=== PATIENT | female | born 1950 ===

== ENCOUNTER 2017-02-10 16:30 | Emergency (ER) | payer MEDICAID ==
[2017-02-10 16:41] VITALS: TEMP 98.4
[2017-02-10 17:37] LABS: BASO # 0.1 K/uL (0.0-0.2); BASO % 0.8 % (0.0-2.0); EOS # 0.2 K/uL (0.0-0.7); EOS % 1.6 % (0.0-4.0); HEMATOCRIT 41.9 % (34.0-47.0); LYMPH # 2.7 K/uL (1.0-4.3); LYMPH % 21.2 % (20.0-40.0); MEAN CORPUSCULAR HEMOGLOBIN 28.4 pg (27.0-31.0); MEAN CORPUSCULAR HGB CONC 32.7 g/dL (33.0-37.0); MEAN PLATELET VOLUME 8.7 fl (7.2-11.7); MONO % 7.6 % (0.0-10.0); NEUT # 8.9 K/uL (1.8-7.0); NEUT % 68.8 % (50.0-75.0); RED CELL DISTRIBUTION WIDTH 14.4 % (11.5-14.5)
[2017-02-10 17:44] LABS: ALB/GLOB RATIO 1.2 (1.0-2.1); ALKALINE PHOSPHATASE 61 U/L (38-126); ALT/SGPT 35 U/L (9-52); AST/SGOT 24 U/L (14-36); BILIRUBIN,TOTAL 0.2 mg/dl (0.2-1.3); BLOOD UREA NITROGEN 16 mg/dl (7-17); CALCIUM 9.4 mg/dL (8.4-10.2); CARBON DIOXIDE 23 mmol/L (22-30); CHLORIDE 106 mmol/L (98-107); GFR AFRICAN-AMERICAN > 60; GLUCOSE,RANDOM 251 mg/dL (65-105); SODIUM 141 mmol/l (132-148); TOTAL PROTEIN 7.9 G/DL (6.3-8.2); URIC ACID 4.5 mg/Dl (2.2-7.5)
--- NOTE | 2017-02-10 17:53 | ED PDOC ---
Lower Extremity Pain/Injury Time Seen by Provider: 02/10/17 16:43 Chief Complaint (Nursing): Lower Extremity Problem/Injury Chief Complaint (Provider): Right toe pain History Per: Patient History/Exam Limitations: no limitations Onset/Duration Of Symptoms: Hrs Current Symptoms Are (Timing): Still Present Additional Complaint(s): Abbi Houston, a 66 year old female, presents to the ED with right toe pain. The patient states that today she had an onset of right toe pain. She reports that the pain and swelling developed abruptly. Denies trauma, numbness, tingling , rash. Past Medical History Reviewed: Historical Data, Nursing Documentation, Vital Signs Vital Signs: Last Vital Signs Temp 98.4 F 02/10/17 16:39 Pulse 91 H 02/10/17 16:39 Resp 16 02/10/17 16:39 BP 189/86 H 02/10/17 16:39 Pulse Ox 97 02/10/17 16:39 - Medical History PMH: Diabetes, HTN - Surgical History Surgical History: Cholecystectomy - Family History Family History: States: Unknown Family Hx - Home Medications Home Medications: Ambulatory Orders Medication Instructions Recorded Lisinopril [Lisinopril] 1 tab PO DAILY 07/06/14 Metformin Hydrochloride [Metformin] 1 tab PO BID 07/06/14 Ibuprofen [Motrin] 600 mg PO Q8 PRN #21 tab 11/21/16 oxyCODONE/Acetaminophen [Percocet 1 ea PO Q6 PRN #8 tab 11/21/16 5/325 mg Tab] Amoxicillin/Clavulanate [Augmentin 1 tab PO BID #20 tab 02/10/17 875 MG-125 MG] - Allergies Allergies/Adverse Reactions: Allergies Allergy/AdvReac Type Severity Reaction Status Date / Time No Known Allergies Allergy Verified 11/21/16 16:45 Review of Systems Musculoskeletal: Positive for: Other (Right toe pain; denies numbness tingling and rash.) Skin: Negative for: Rash Physical Exam - Reviewed Nursing Documentation Reviewed: Yes Vital Signs Reviewed: Yes - Physical Exam Appears: Positive for: Well, Non-toxic, No Acute Distress Head Exam: Positive for: ATRAUMATIC, NORMOCEPHALIC Skin: Positive for: Normal Color, Warm. Negative for: Rash Pulses-Dorsalis Pedis (L): 2+ Pulses-Dorsalis Pedis (R): 2+ (phalyxn of right great toe with mild swelling erythema and tederness; no ulcers; no break in skin integrity.) Back: Positive for: Normal Inspection. Negative for: L CVA Tenderness, R CVA Tenderness Extremity: Positive for: Tenderness (Mild tenderness of righ toe.), Capillary Refill (Capillary refills less than 2 seconds of R great toe), Swelling, Other ( phalanx of right great toe with mild swelling erythema and tederness on distal phalanx without nail involvement or fluctuance; no ulcers; no break in skin integrity). Negative for: Pedal Edema (b/l), Calf Tenderness (b/l) Neurologic/Psych: Positive for: Alert, Oriented - Laboratory Results Result Diagrams: 02/10/17 17:30 02/10/17 17:30 - ECG O2 Sat by Pulse Oximetry: 97 (RA) Pulse Ox Interpretation: Normal - Radiology X-Ray: Interpreted by Me (Foot x-ray) X-Ray Interpretation: No Acute Disease - Progress ED Course And Treament: Pt. evaluated by Jodi, podiatry resident, who spoke with Dr. Chawla and states pt. can be prescribed Augmentin and can f/u in podiatry clinic on Wednesday. Medical Decision Making Medical Decision Makin:43 66 year old female present to the Ed with right toe pain. Initial plan: * CMP * Uric acid * CBC * Toradol 15mg IM * RAD right foot Scribe Attestation Documented by Dottie Barreto acting as a scribe for Faustino Stuart PA-C. Provider Attestation: All medical record entries made by the Scribe were at my direction and personally dictated by me. I have reviewed the chart and agree that the record accurately reflects my personal performance of the history, physical exam, medical decision making, and the department course for this patient. I have also personally directed, reviewed, and agree with the discharge instructions and disposition Disposition - Clinical Impression Clinical Impression: Cellulitis - Patient ED Disposition Is Patient to be Admitted: No - Disposition Referrals: [facility] [Provider Group] Grace Chawla DPM [Staff Provider] - Disposition: Routine/Home Disposition Time: 19:17 Condition: STABLE Prescriptions: Amoxicillin/Clavulanate [Augmentin 875 MG-125 MG] 1 tab PO BID #20 tab Instructions: Cellulitis (ED)
[2017-02-10 19:26] VITALS: BP 119/73; PULSE 73; RESP 18
--- NOTE | 2017-02-10 19:26 | CP.PCM.CON ---
History of Present Illness - History of Present Illness History of Present Illness: 66 y/o female seen in the ED with pmhx of DM, HTN with chief complaint of right great toe pain. Patient states that she noticed the pain and redness a few hours ago when she was sitting on the couch. Patient denies any trauma to the area, denies any ingrown toenails. She states that it came on suddenly and has never had this before. Patient states that she soaked her toe in hot water and it helped a little. Patient denies any numbness, burning or tingling to the area. She denies n/f/v/d/c/sob. Review of Systems - Constitutional Constitutional: As Per HPI Past Patient History - Infectious Disease Hx of Infectious Diseases: None - Past Medical History & Family History Past Medical History?: Yes - Past Social History Smoking Status: Heavy Smoker > 10 Cigarettes Daily - CARDIAC Hx Hypertension: Yes - ENDOCRINE/METABOLIC Hx Endocrine Disorders: Yes Hx Diabetes Mellitus Type 2: Yes - PSYCHIATRIC Hx Substance Use: No - SURGICAL HISTORY Hx Cholecystectomy: Yes - ANESTHESIA Hx Anesthesia: Yes Hx Anesthesia Reactions: No Hx Malignant Hyperthermia: No Meds Home Medications: Home Medication List Medication Instructions Recorded Confirmed Type Amoxicillin/Clavulanate [Augmentin 1 tab PO BID #20 tab 02/10/17 Rx 875 MG-125 MG] Allergies/Adverse Reactions: Allergies Allergy/AdvReac Type Severity Reaction Status Date / Time No Known Allergies Allergy Verified 11/21/16 16:45 Physical Exam - Constitutional Appears: Well, Non-toxic, No Acute Distress - Extremities Exam Additional comments: Vasc: DP 2/4 b/l, PT 1/4 b/l, TG wnl, CFT < 3 sec to all digits neuro: grossly intact derm: mild localized edema to right hallux, localized erythema to right hallux, no open lesions, no paronychias noted, no interdigital maceration, hallucal nail is fungal and thickened bilaterally, no hyperkeratotic lesions ortho: pain on palpation to medial hallux - Neurological Exam Neurological exam: Alert, Oriented x3 - Psychiatric Exam Psychiatric exam: Normal Affect, Normal Mood Results - Vital Signs Recent Vital Signs: Last Vital Signs Temp 98.4 F 02/10/17 16:39 Pulse 91 H 02/10/17 16:39 Resp 16 02/10/17 16:39 BP 189/86 H 02/10/17 16:39 Pulse Ox 97 02/10/17 19:18 - Labs Result Diagrams: 02/10/17 17:30 02/10/17 17:30 Labs: Laboratory Results - last 24 hr 02/10/17 02/10/17 17:30 17:30 WBC 13.0 H RBC 4.81 Hgb 13.7 Hct 41.9 MCV 87.0 MCH 28.4 MCHC 32.7 L RDW 14.4 Plt Count 314 MPV 8.7 Neut % (Auto) 68.8 Lymph % (Auto) 21.2 [place] % (Auto) 7.6 Eos % (Auto) 1.6 Baso % (Auto) 0.8 Neut # 8.9 H Lymph # 2.7 [place] # 1.0 H Eos # 0.2 Baso # 0.1 Sodium 141 Potassium 4.0 Chloride 106 Carbon Dioxide 23 Anion Gap 16 BUN 16 Creatinine 0.5 L Est GFR ( Amer) > 60 Est GFR (Non-Af Amer) > 60 Random Glucose 251 H Uric Acid 4.5 Calcium 9.4 Total Bilirubin 0.2 AST 24 ALT 35 Alkaline Phosphatase 61 Total Protein 7.9 Albumin 4.3 Globulin 3.6 Albumin/Globulin Ratio 1.2 Assessment & Plan - Assessment and Plan (Free Text) Assessment: 66 y/o female pmhx of DM, HTN seen in ED for right hallux localized cellulitis Plan: patient evaluated and chart reviewed discussed in detail with attending Dr. Chawla labs and vitals reviewed; afebrile, WBC 13 x rays of right foot show no evidence of fracture, dislocation, no soft tissue emphysema, periosteal reaction noted to medial hallux with osteophytic changes Rx Augmentin 875mg PO BID x10 days instructed patient to do warm water soaks with epsom salts BID instructed patient to take ibuprofen prn pain patient to follow up as outpatient next wed in podiatry clinic 02/17/17 ED precautions noted
[2017-02-10 22:26] VITALS: O2SAT 97
--- NOTE | 2017-02-11 13:37 | RAD ---
PROCEDURE: Right Foot Radiographs. HISTORY: pain COMPARISON: None. FINDINGS: BONES: Normal. No fracture. JOINTS: Normal. SOFT TISSUES: Normal. OTHER FINDINGS: Heel spurs. IMPRESSION: Heel spurs.
== END 2017-02-10 19:24 | disposition home or self-care (01) ==
LOC: H.ER 16:30
DX: L03.031 Cellulitis of right toe (principal); E11.9 Type 2 diabetes mellitus without complications; I10 Essential (primary) hypertension; Z79.84 Long term (current) use of oral hypoglycemic drugs

== ENCOUNTER 2017-11-15 15:39 | Emergency (ER) | payer MEDICAID, MEDICARE ==
[2017-11-15 15:55] VITALS: PULSE 86; RESP 18; TEMP 98.4; O2SAT 97
--- NOTE | 2017-11-15 17:05 | ED PDOC ---
HPI: Female Pain Time Seen by Provider: 11/15/17 16:13 Chief Complaint (Nursing): Back Pain Chief Complaint (Provider): Dysuria History Per: Patient History/Exam Limitations: no limitations Onset/Duration Of Symptoms: Days (x3) Current Symptoms Are (Timing): Still Present Associated Symptoms: Back Pain (lower) Additional Complaint(s): Abbi Houston is a 67 year old female, with a past medical history of diabetes, who presents to the emergency department complaining of dysuria and lower back pain onset for x3 days. Patient reports taking OTC medication for pain relief but with no improvement of symptoms. She denies any fever, chills, vomiting or hematuria. No further medical complaints. PMD: Rory Glass Past Medical History Reviewed: Historical Data, Nursing Documentation, Vital Signs Vital Signs: Last Vital Signs Temp 98.4 F 11/15/17 15:52 Pulse 86 11/15/17 15:52 Resp 18 11/15/17 15:52 BP Pulse Ox 97 11/15/17 15:52 - Medical History PMH: Diabetes, HTN - Surgical History Surgical History: Cholecystectomy - Family History Family History: States: Unknown Family Hx - Home Medications Home Medications: Ambulatory Orders Medication Instructions Recorded Lisinopril [Lisinopril] 1 tab PO DAILY 07/06/14 Metformin Hydrochloride [Metformin] 1 tab PO BID 07/06/14 Ibuprofen [Motrin] 600 mg PO Q8 PRN #21 tab 11/21/16 oxyCODONE/Acetaminophen [Percocet 1 ea PO Q6 PRN #8 tab 11/21/16 5/325 mg Tab] Amoxicillin/Clavulanate [Augmentin 1 tab PO BID #20 tab 02/10/17 875 MG-125 MG] Cephalexin [Keflex] 500 mg PO Q6 #28 capsule 11/15/17 Ibuprofen [Motrin Tab] 600 mg PO QID PRN #20 tab 11/15/17 - Allergies Allergies/Adverse Reactions: Allergies Allergy/AdvReac Type Severity Reaction Status Date / Time No Known Allergies Allergy Verified 11/21/16 16:45 Review of Systems ROS Statement: Except As Marked, All Systems Reviewed And Found Negative Constitutional: Negative for: Fever, Chills Gastrointestinal: Negative for: Vomiting Genitourinary Female: Positive for: Dysuria. Negative for: Hematuria Musculoskeletal: Positive for: Back Pain (lower) Physical Exam - Reviewed Nursing Documentation Reviewed: Yes Vital Signs Reviewed: Yes - Physical Exam Comments: GENERAL APPEARANCE: Patient is awake, alert, oriented x 3, in no acute distress. SKIN: Warm, dry; (-) cyanosis. EYES: (-) conjunctival pallor, (-) scleral icterus. ENMT: Mucous membranes moist. NECK: (-) tenderness, (-) stiffness, (-) lymphadenopathy. CHEST AND RESPIRATORY: (-) rales, (-) rhonchi, (-) wheezes; breath sounds equal bilaterally. HEART AND CARDIOVASCULAR: (-) irregularity; (-) murmur, (-) gallop. ABDOMEN AND GI: (-) distention. Bowel sounds active; (-)tenderness, (-) guarding, (-) rebound, (-) palpable masses, (-) CVA tenderness. BACK : (-) midline or paravertebral tenderness. EXTREMITIES: (-) deformity, (-) edema, (+) distal pulses. NEURO AND PSYCH: Mental status as above; (-) focal findings. - ECG O2 Sat by Pulse Oximetry: 97 (RA) Pulse Ox Interpretation: Normal Medical Decision Making Medical Decision Making: Initial Impression: UTI Initial Plan: --Toradol 60 mg IM --Urine culture --Urinalysis --Reevaluation UA shows (+) UTI, urine cx sent and pending. On re-evaluation, patient reports improvement of back pain, reports no fever, nausea, or abdominal pain. On exam, patient remains AAOx3, in no acute distress. On exam, abdomen is soft and non-tender, no CVA tenderness. Diagnostic results d/w the patient in great detail. Dx of UTI d/w the patient. Based on history, exam and diagnostic results plan will be for outpt f/u. Advised to follow up with primary care physician in 1-2 days without fail. Advised to take medication as prescribed. Return to the emergency room at any time for any new or worsening symptoms. Patient states she fully agrees with and understands discharge instructions. States that she agrees with the plan and disposition. Verbalized and repeated discharge instructions and plan. I have given the patient opportunity to ask any additional questions. ~ Scribe Attestation: Documented by Jorge Luis Salazar, acting as a scribe for Yanni Chandler PA-C. Provider Scribe Attestation: All medical record entries made by the Scribe were at my direction and personally dictated by me. I have reviewed the chart and agree that the record accurately reflects my personal performance of the history, physical exam, medical decision making, and the department course for this patient. I have also personally directed, reviewed, and agree with the discharge instructions and disposition. Disposition - Clinical Impression Clinical Impression: Back pain, UTI (urinary tract infection) - Patient ED Disposition Is Patient to be Admitted: No Counseled Patient/Family Regarding: Studies Performed, Diagnosis, Need For Followup, Rx Given - Disposition Disposition: Routine/Home Disposition Time: 18:00 Condition: STABLE Additional Instructions: Thank you for letting us take care of you today. You were treated for UTI, low back pain. The emergency medical care you received today was directed at your acute symptoms. If you were prescribed any medication, please fill it and take as directed. It may take several days for your symptoms to resolve. Return to the Emergency Department if your symptoms worsen, do not improve, or if you have any other problems. Please contact your doctor in 2 days for re-evaluation and follow up. Bring any paperwork you were given at discharge with you along with any medications you are taking to your follow up visit. Our treatment cannot replace ongoing medical care by a primary care provider (PCP) outside of the emergency department. Thank you for allowing the [facility] team to be part of your care today. If you had a urine culture: It will take several days for the results, if any change in treatment is needed we will contact you. Prescriptions: Cephalexin [Keflex] 500 mg PO Q6 #28 capsule Ibuprofen [Motrin Tab] 600 mg PO QID PRN #20 tab PRN Reason: Pain, Moderate (4-7) Instructions: Low Back Pain (DC), Urinary Tract Infection, Adult (DC) Forms: [facility] (Polish) - PA / REVOLVING INVENTORY CLERK / Resident Statement MD/DO has reviewed & agrees with the documentation as recorded.
[2017-11-15 17:36] LABS: SQUAMOUS EPITHIAL 2 /hpf (0-5); URINE BILIRUBIN NEGATIVE (NEGATIVE); URINE BLOOD NEGATIVE (NEGATIVE); URINE CLARITY CLEAR (Clear); URINE COLOR AMBER (YELLOW); URINE GLUCOSE (UA) 50 mg/dL (Normal); URINE HYALINE CAST 0-2 /hpf (0-2); URINE LEUKOCYTE ESTERASE NEG Leu/uL (Negative); URINE NITRATE POSITIVE (NEGATIVE); URINE PROTEIN NEGATIVE (NEGATIVE)
== END 2017-11-15 18:28 | disposition home or self-care (01) ==
LOC: H.ER 15:39
DX: M54.9 Dorsalgia, unspecified (principal); N39.0 Urinary tract infection, site not specified; E11.9 Type 2 diabetes mellitus without complications; I10 Essential (primary) hypertension; Z79.84 Long term (current) use of oral hypoglycemic drugs
CPT/HCPCS: 81003; 87086; 96372; 99282; J1885

== ENCOUNTER 2018-09-15 17:37 | Emergency (ER) | payer MEDICARE ==
[2018-09-15 18:04] VITALS: TEMP 98.2
[2018-09-15] MEDS ORDERED: Sodium Chloride 0.9% 1,000 ML IV STA (18:17)
--- NOTE | 2018-09-15 18:24 | ED PDOC ---
HPI: Abdomen Time Seen by Provider: 09/15/18 18:11 Chief Complaint (Nursing): Abdominal Pain Chief Complaint (Provider): Abdominal Pain History Per: Patient History/Exam Limitations: no limitations Onset/Duration Of Symptoms: Days (x2) Current Symptoms Are (Timing): Still Present Location Of Pain/Discomfort: Epigastric, LUQ Quality Of Discomfort: "Pain" Associated Symptoms: Nausea, Diarrhea. denies: Vomiting, Constipation Exacerbating Factors: denies: Cough Additional Complaint(s): The pt is a 68 y/o female with a PMHx of DM, HLD, and HTN, who presents to the ED with upper and left-sided abdominal pain. In addition, she reports experiencing nausea and diarrhea after consuming leftovers from . She denies chest pain, shortness of breath, vomiting, back pain, cough, fever, congestion, dysuria, bloody stools or urine. The patient has not taken any m edication for relief prior to arrival. PCP: Dr. Adis Glass Past Medical History Reviewed: Historical Data, Nursing Documentation, Vital Signs Vital Signs: Last Vital Signs Temp 98.2 F 09/15/18 18:01 Pulse 77 09/15/18 18:01 Resp 16 09/15/18 18:01 BP 143/79 09/15/18 18:01 Pulse Ox 97 09/15/18 18:01 - Medical History PMH: Diabetes, HTN, Hyperlipidemia - Surgical History Surgical History: Appendectomy, Cholecystectomy, - Family History Family History: States: Unknown Family Hx - Home Medications Home Medications: Ambulatory Orders Medication Instructions Recorded Lisinopril 1 tab PO DAILY 07/06/14 Metformin Hydrochloride [Metformin] 1 tab PO BID 07/06/14 Ibuprofen [Motrin] 600 mg PO Q8 PRN #21 tab 11/21/16 oxyCODONE/Acetaminophen [Percocet 1 ea PO Q6 PRN #8 tab 11/21/16 5/325 mg Tab] Amoxicillin/Clavulanate [Augmentin 1 tab PO BID #20 tab 02/10/17 875 MG-125 MG] Cephalexin [Keflex] 500 mg PO Q6 #28 capsule 11/15/17 Ibuprofen [Motrin Tab] 600 mg PO QID PRN #20 tab 11/15/17 - Allergies Allergies/Adverse Reactions: Allergies Allergy/AdvReac Type Severity Reaction Status Date / Time No Known Allergies Allergy Verified 09/15/18 18:01 Review of Systems ROS Statement: Except As Marked, All Systems Reviewed And Found Negative Constitutional: Negative for: Fever ENT: Negative for: Nose Congestion Cardiovascular: Negative for: Chest Pain Respiratory: Negative for: Cough, Shortness of Breath Gastrointestinal: Positive for: Nausea, Abdominal Pain (left/upper), Diarrhea. Negative for: Vomiting, Hematochezia Genitourinary Female: Negative for: Dysuria, Hematuria Musculoskeletal: Negative for: Back Pain Physical Exam - Reviewed Nursing Documentation Reviewed: Yes Vital Signs Reviewed: Yes - Physical Exam Appears: Positive for: No Acute Distress Head Exam: Positive for: ATRAUMATIC, NORMAL INSPECTION, NORMOCEPHALIC Skin: Positive for: Normal Color Eye Exam: Positive for: Normal appearance ENT: Positive for: Normal ENT Inspection Neck: Positive for: Normal Cardiovascular/Chest: Positive for: Regular Rate, Rhythm Respiratory: Positive for: Normal Breath Sounds Gastrointestinal/Abdominal: Positive for: Tenderness (left-sided and epigastric mildly) Back: Positive for: Normal Inspection. Negative for: L CVA Tenderness, R CVA Tenderness Extremity: Positive for: Normal ROM (upper/lower) Neurologic/Psych: Positive for: Alert, Oriented - Laboratory Results Result Diagrams: 09/15/18 19:07 09/15/18 19:07 Interpretation Of Abn Labs: 644 lipase; bun 22 - ECG O2 Sat by Pulse Oximetry: 97 (RA) Pulse Ox Interpretation: Normal - Progress ED Course And Treament: 2141: Will get ct for pancreas eval. 2355: Stable. Dr. Patterson to take over care. Fu on ct. Pt. pain free. Medical Decision Making Medical Decision Making: Initial Impression: Plan: - EKG - CMP - Lipase - Troponin I - Urine (POC) - CBC - Bentyl 10 mg PO - Sodium Chloride 0.9% 1000 ml IV 1000 mls/hr - Pepcid 20 mg IVP - Toradol 15 mg IVP - Zofran 4 mg IV ----- Scribe Attestation: Documented by Robert Mendez, acting as a scribe for Adriano Quezada MD. Provider Scribe Attestation: All medical record entries made by the Scribe were at my direction and personally dictated by me. I have reviewed the chart and agree that the record accurately reflects my personal performance of the history, physical exam, medical decision making, and the department course for this patient. I have also personally directed, reviewed, and agree with the discharge instructions and disposition. Disposition - Clinical Impression Clinical Impression: Abdominal pain - Patient ED Disposition Is Patient to be Admitted: No - Disposition Disposition Time: 23:55 Condition: STABLE Patient Signed Over To: Ken Patterson
[2018-09-15 19:19] LABS: BASO # 0.1 K/uL (0.0-0.2); BASO % 1.2 % (0.0-2.0); EOS # 0.2 K/uL (0.0-0.7); EOS % 1.9 % (0.0-4.0); HEMOGLOBIN 13.7 g/dL (12.0-16.0); LYMPH # 3.3 K/uL (1.0-4.3); LYMPH % 32.1 % (20.0-40.0); MEAN CELL VOLUME 86.9 fl (81.0-99.0); MEAN CORPUSCULAR HEMOGLOBIN 28.9 pg (27.0-31.0); MEAN CORPUSCULAR HGB CONC 33.2 g/dL (33.0-37.0); MEAN PLATELET VOLUME 8.5 fl (7.2-11.7); MONO # 0.7 K/uL (0.0-0.8); MONO % 6.8 % (0.0-10.0); NEUT # 5.9 K/uL (1.8-7.0); NRBC % 0.1 % (0.0-0.0); RBC 4.73 Mil/uL (3.80-5.20); RED CELL DISTRIBUTION WIDTH 14.1 % (11.5-14.5); WHITE BLOOD COUNT 10.1 K/uL (4.8-10.8)
[2018-09-15 19:31] LABS: ALB/GLOB RATIO 1.2 (1.0-2.1); ALBUMIN 4.3 g/dL (3.5-5.0); ALT/SGPT 30 U/L (9-52); AST/SGOT 23 U/L (14-36); BLOOD UREA NITROGEN 22 mg/dl (7-17); CALCIUM 10.3 mg/dL (8.4-10.2); GFR NON-AFRICAN AMERICAN > 60; LIPASE 644 U/L (23-300)
[2018-09-15] MEDS ORDERED: Iohexol 240 (50 ml) PO ONE (21:39)
[2018-09-15] MEDS ORDERED: Iohexol 240 (50 ml) ONE (22:17)
[2018-09-15] MEDS ORDERED: Sodium Chloride 0.9% 50 ML IV ONE (23:33)
[2018-09-15] MEDS ORDERED: Iohexol 300 100 ML IJ ONE (23:34)
[2018-09-15 23:56] VITALS: O2SAT 97
--- NOTE | 2018-09-16 00:07 | ED PDOC ---
- Laboratory Results Result Diagrams: 09/15/18 19:07 09/15/18 19:07 - ECG O2 Sat by Pulse Oximetry: 97 (RA) - Progress Re-evaluation Time: 01:05 Condition: Re-examined, Improved Medical Decision Making Medical Decision Makin:00 Patient care endorsed from Dr. Quezada to this provider pending CT and disposition. 0100 CT COMMENTS: The liver is enlarged with decreased attenuation without mass or defect. There is no intra or extrahepatic biliary ductal dilatation. The spleen is normal. The gallbladder is surgically absent. The pancreas is of normal contour and attenua tion characteristics. There is no evidence of adrenal mass. Unchanged right renal lower calyceal nonobstructing stones the largest measuring 7 mm. Both kidneys demonstrate prompt and equal nephrograms. The kidneys are normal in size, shape and configuration. There is no evidence of renal or ureteral mass. No left renal or ureteral calculi are identified. There is no hydroureter or hydronephrosis. No evidence for appendicitis. There is no bowel wall thickening. No evidence for small or large bowel obstruction. There is no evidence of abdominal ascites or lymphadenopathy. Mild diffuse thickening of the lobe of the bladder. There is no evidence of intrinsic or extrinsic bladder mass. There is no pelvic ascites or lymphadenopathy. Images of the lung bases show no evidence of pleural or parenchymal mass. There are no pleural effusions. The bony structures are free of lytic or blastic lesions. Mild diffuse spondylosis. IMPRESSION: Unchanged exam. No evidence of acute abdominal or pelvic pathology. Scribe Attestation: Documented by Guadalupe Luong, acting as a scribe for Ken Patterson MD. Provider Scribe Attestation: All medical record entries made by the Scribe were at my direction and personally dictated by me. I have reviewed the chart and agree that the record accurately reflects my personal performance of the history, physical exam, medical decision making, and the department course for this patient. I have also personally directed, reviewed, and agree with the discharge instructions and disposition. Disposition Doctor Will See Patient In The: Office Counseled Patient/Family Regarding: Studies Performed, Diagnosis - Clinical Impression Clinical Impression: Abdominal pain, Gastritis - POA Present On Arrival: None - Disposition Referrals: Adis Glass MD [Medical Doctor] - Disposition: Routine/Home Disposition Time: 01:06 Condition: GOOD Additional Instructions: [place]JUA[place] ROOT, thank you for letting us take care of you today. Your provider was Ken Patterson MD and you were treated for ABD PAIN, NAUSEA. The emergency medical care you received today was directed at your acute symptoms. If you were prescribed any medication, please fill it and take as directed. It may take several days for your symptoms to resolve. Return to the Emergency Department if your symptoms worsen, do not improve, or if you have any other problems. Please contact your doctor or call one of the physicians/clinics you have been referred to that are listed on the Patient Visit Information form that is included in your discharge packet. Bring any paperwork you were given at discharge with you along with any medications you are taking to your follow up visit. Our treatment cannot replace ongoing medical care by a primary care provider outside of the emergency department. Thank you for allowing the [facility] team to be part of your care today. If you had an X-Ray or CT scan: A Radiologist will review the ED reading if any change in treatment is needed we will contact you. If you had a blood, urine, or wound culture: It will take several days for the results, if any change in treatment is needed we will contact you. If you had an STI test: It will take 48 hours for the results. Please call after 1 week if you have not heard back. Prescriptions: Famotidine [Pepcid] 20 mg PO DAILY #14 tab Instructions: Stomach Ache and Stomach Upset Forms: [employer] (Amharic)
[2018-09-16 00:11] VITALS: BP 137/72; PULSE 62; RESP 19
--- NOTE | 2018-09-16 11:12 | CT ---
Date of service: 09/15/2018 PROCEDURE: CT Abdomen and Pelvis. HISTORY: Abdominal pain COMPARISON: Comparison made with prior CT scan the abdomen and pelvis 04/14/2014 TECHNIQUE: Contiguous axial images of the abdomen and pelvis following oral and intravenous injection of approximately 90 cc Omnipaque 300 contrast material. Additional 2D sagittal and coronal reformats generated. Radiation dose: Total exam DLP = 607.01 mGy-cm. This CT exam was performed using one or more of the following dose reduction techniques: Automated exposure control, adjustment of the mA and/or kV according to patient size, and/or use of iterative reconstruction technique. FINDINGS: LOWER THORAX: Heart size within range of normal. No significant pericardial effusion. There is a tiny hiatal hernia with slight wall thickening of distal esophagus likely due to protrusion gastric mucosa. Possibility of esophagitis not excluded. Minor scarring changes seen in both lung bases including the lingular. Nodular appearing scarring in the right middle lobe region also noted. Changes appear relatively stable when compared with prior study LIVER: Liver exhibits normal size measuring just over 16 cm in CC dimension. Mild to moderate fatty hepatic infiltration. No obvious hepatic masses collections or calcifications. Portal and splenic veins opacified. GALLBLADDER AND BILE DUCTS: Cholecystectomy PANCREAS: Pancreas is slightly atrophic and fatty replaced. No obvious pancreatic masses collections calcifications. SPLEEN: Unremarkable. No splenomegaly. ADRENALS: No adrenal lesions. KIDNEYS AND URETERS: Kidneys demonstrates symmetric nephrograms.. Redemonstrated are 2 nonobstructing calculi within the mid to lower pole right kidney the largest measuring approximately 11.6 x 5.1 cm and the smaller more inferiorly located calculus measuring approximately 6.7 x 2.7 mm. No evidence of right-sided hydronephrosis.. Punctate nonobstructing calcifications seen lower pole left kidney. No evidence of left-sided hydronephrosis. BLADDER: Urinary bladder incompletely distended which in part accounts for thick-walled appearance. Correlation with urinalysis to exclude cystitis-UTI. No evidence of intraluminal urinary bladder calculi.. REPRODUCTIVE: Uterus appears grossly unremarkable. APPENDIX: No evidence to suggest acute appendicitis. BOWEL: Evaluation of the bowel is somewhat limited due to incomplete opacification. The stomach is incompletely distended which in part accounts for thick-walled appearance. Slightly prominent rugal folds could be due to incomplete distention however rule out gastritis. Visualized loops of small bowel exhibit normal contour and caliber. No evidence of acute mechanical small bowel obstruction with oral contrast material seen extending into the colon to the level of the distal transverse colon region. Scattered colonic diverticula again noted however no definitive radiographic evidence of acute diverticulitis.. PERITONEUM: Unremarkable. No fluid collection. No free air. Tiny fat containing umbilical hernia. LYMPH NODES: Unremarkable. No enlarged lymph nodes. VASCULATURE: Unremarkable. No aortic aneurysm. Mild aortic atherosclerotic calcification or mural plaque present. BONES: Mild multilevel degenerative spondylosis of the lower thoracic and lumbar spine. There are no acute compression fractures no retropulsed fragments. OTHER FINDINGS: None. IMPRESSION: Fatty hepatic infiltration. Cholecystectomy. Diverticulosis with no definitive radiographic evidence of acute diverticulitis. Bilateral nonobstructing renal calculi as above. Mild urinary bladder wall thickening likely due to incomplete distention however cystitis not excluded. Correlation with urinalysis recommended.
--- NOTE | 2018-09-16 12:32 | CARD ---
APPROVED REPORT Date of service: 09/15/2018 EKG Measurement Heart [id number] <Conclusion> Normal sinus rhythm Normal ECG
== END 2018-09-16 01:20 | disposition home or self-care (01) ==
LOC: H.ER 17:37
DX: R10.9 Unspecified abdominal pain (principal); K29.70 Gastritis, unspecified, without bleeding; E11.9 Type 2 diabetes mellitus without complications; E78.5 Hyperlipidemia, unspecified; I10 Essential (primary) hypertension; Z79.84 Long term (current) use of oral hypoglycemic drugs
CPT/HCPCS: 74177; 80053; 83690; 84484; 85025; 93005; 96374; 96375; 99284; J1885; J2405; J7030; Q9966; Q9967

== ENCOUNTER 2018-12-03 15:33 | Emergency (ER) | payer MEDICARE ==
[2018-12-03 15:52] VITALS: O2SAT 96
[2018-12-03] MEDS ORDERED: DiphenhydrAMINE 50 mg/ml Inj IVP STA (16:12)
[2018-12-03] MEDS ORDERED: Promethazine 25 MG in Sodium Chloride 0.9% 50 ML IVPB STA (16:12)
[2018-12-03] MEDS ORDERED: Sodium Chloride 0.9% 1,000 ML IV STA (16:29)
--- NOTE | 2018-12-03 16:36 | ED PDOC ---
HPI: Headache Time Seen by Provider: 12/03/18 15:59 Chief Complaint (Nursing): Headache Chief Complaint (Provider): Headache History Per: Patient History/Exam Limitations: no limitations Onset/Duration Of Symptoms: Days (x2) Current Symptoms Are (Timing): Constant Quality: "Pain" Preceeding Symptoms: denies: Visual Disturbances Associated Symptoms: denies: Blurred Vision, Nausea, Vomiting, Extremity Weakness Additional Complaint(s): 68 year old female with a history of diabetes presents to the ED with a constant, posterior headache for 2 days. Patient took Advil at home with no relief, last took Advil yesterday. She denies any visual changes, nausea, vomiting, paresthesias, or weakness. PMD: none provided Past Medical History Reviewed: Historical Data, Nursing Documentation, Vital Signs Vital Signs: Last Vital Signs Temp 98.0 F 12/03/18 15:50 Pulse 79 12/03/18 15:50 Resp 18 12/03/18 15:50 BP 150/82 12/03/18 15:50 Pulse Ox 96 12/03/18 15:50 - Medical History PMH: Diabetes, HTN, Hypercholesterolemia, Hyperlipidemia - Surgical History Surgical History: Appendectomy, Cholecystectomy, - Family History Family History: States: Unknown Family Hx - Social History Current smoker - smoking cessation education provided: Yes Ex-Smoker (has not smoked in the last 12 months): No - Home Medications Home Medications: Ambulatory Orders Medication Instructions Recorded Lisinopril 1 tab PO DAILY 07/06/14 Metformin Hydrochloride [Metformin] 1 tab PO BID 07/06/14 Ibuprofen [Motrin] 600 mg PO Q8 PRN #21 tab 11/21/16 oxyCODONE/Acetaminophen [Percocet 1 ea PO Q6 PRN #8 tab 11/21/16 5/325 mg Tab] Amoxicillin/Clavulanate [Augmentin 1 tab PO BID #20 tab 02/10/17 875 MG-125 MG] Cephalexin [Keflex] 500 mg PO Q6 #28 capsule 11/15/17 Ibuprofen [Motrin Tab] 600 mg PO QID PRN #20 tab 11/15/17 Famotidine [Pepcid] 20 mg PO DAILY #14 tab 09/16/18 Acetaminophen with Codeine 1 tab PO Q6H PRN #10 tab 12/03/18 [Tylenol with Codeine No. 3 300 mg-30 mg] Amoxicillin/Clavulanate [Augmentin 1 tab PO BID #9 tab 12/03/18 875 MG-125 MG] - Allergies Allergies/Adverse Reactions: Allergies Allergy/AdvReac Type Severity Reaction Status Date / Time No Known Allergies Allergy Verified 12/03/18 15:50 Review of Systems ROS Statement: Except As Marked, All Systems Reviewed And Found Negative Eyes: Negative for: Vision Change Gastrointestinal: Negative for: Nausea, Vomiting Neurological: Positive for: Headache. Negative for: Weakness Physical Exam - Reviewed Nursing Documentation Reviewed: Yes Vital Signs Reviewed: Yes - Physical Exam Appears: Positive for: Non-toxic, No Acute Distress Head Exam: Positive for: ATRAUMATIC, NORMOCEPHALIC Skin: Positive for: Normal Color, Warm, Dry Eye Exam: Positive for: Normal appearance, EOMI, PERRL Cardiovascular/Chest: Positive for: Regular Rate, Rhythm. Negative for: Murmur Respiratory: Positive for: Normal Breath Sounds. Negative for: Respiratory Distress Gastrointestinal/Abdominal: Positive for: Normal Exam, Soft. Negative for: Tenderness Extremity: Positive for: Normal ROM (upper and lower). Negative for: Pedal Edema, Deformity Neurological/Psych: Positive for: Awake, Alert, Oriented (x3) Comments: HEAD: tenderness to posterior inferior scalp. - Laboratory Results Result Diagrams: 12/03/18 16:40 12/03/18 16:40 - ECG O2 Sat by Pulse Oximetry: 96 (RA) Pulse Ox Interpretation: Normal Medical Decision Making Medical Decision Making: Time: 1611 Plan: --CT head w/o contrast --CMP --CBC --Glucose --Benadryl 25 mg IVP --IV fluids --Phenergan Inj 25 mg Accession No. : [id number] Patient Name / ID : [id number] / [id number] Exam Date : 12/03/2018 16:43:37 ( Approved ) Study Comment : Sex / Age : F / 68Y Creator : Arun Ayala MD Dictator : Arun Ayala MD Overlock Collar Setter : Manager Freelance : Arun Ayala MD Approver2 : Report Date : 12/03/2018 17:19:34 My Comment : Date of service: 12/03/2018 PROCEDURE: CT HEAD WITHOUT CONTRAST. HISTORY: [facility] COMPARISON: 2010 TECHNIQUE: Axial computed tomography images were obtained through the head/brain without intravenous contrast. Radiation dose: Total exam DLP = 785.69 mGy-cm. This CT exam was performed using one or more of the following dose reduction techniques: Automated exposure control, adjustment of the mA and/or kV according to patient size, and/or use of iterative reconstruction technique. FINDINGS: HEMORRHAGE: No intracranial hemorrhage. BRAIN: No mass effect or edema. Stable mild age related atrophy and scattered small vessel changes in the white matter tracts are noted. A very tiny caudate head lacunar infarct is not excluded. Posterior fossa is unremarkable. No cortical effacement is seen. Mild atherosclerotic changes of the distal vertebral arteries and intracranial internal carotid arteries is seen. VENTRICLES: Unremarkable. No hydrocephalus. CALVARIUM: Unremarkable. PARANASAL SINUSES: There is evidence of a small fluid level in the posterior aspect of the right maxillary sinus suggestive of mild maxillary sinusitis. Mild mucosal thickening is seen in the ethmoid air cells. MASTOID AIR CELLS: Unremarkable as visualized. No inflammatory changes. OTHER FINDINGS: Retro-orbital regions are unremarkable. IMPRESSION: No evidence of recent infarct or intracranial hemorrhage. Stable mild age related atrophy and small vessel changes. Mild right maxillary sinusitis, new from prior study. Scribe Attestation: Documented by Janet Contreras, acting as a scribe for Orquidea Nunez MD. Provider Scribe Attestation: All medical record entries made by the Scribe were at my direction and personally dictated by me. I have reviewed the chart and agree that the record accurately reflects my personal performance of the history, physical exam, medical decision making, and the department course for this patient. I have also personally directed, reviewed, and agree with the discharge instructions and disposition. Disposition - Clinical Impression Clinical Impression: Maxillary sinusitis, Headache - Disposition Disposition: Routine/Home Disposition Time: 18:56 Condition: IMPROVED Additional Instructions: FOLLOW-UP WITH PMD WITHIN 2 DAYS FOR REEVALUATION. Prescriptions: Acetaminophen with Codeine [Tylenol with Codeine No. 3 300 mg-30 mg] 1 tab PO Q6H PRN #10 tab PRN Reason: Pain, Severe (8-10) Amoxicillin/Clavulanate [Augmentin 875 MG-125 MG] 1 tab PO BID #9 tab Instructions: Sinusitis in Adults, Headache, Adult (DC) Forms: [facility] (Chilean)
[2018-12-03 16:48] LABS: BASO % 0.2 % (0.0-2.0); EOS # 0.1 K/uL (0.0-0.7); EOS % 1.9 % (0.0-4.0); LYMPH # 3.3 K/uL (1.0-4.3); LYMPH % 46.6 % (20.0-40.0); MEAN CELL VOLUME 86.3 fl (81.0-99.0); MEAN CORPUSCULAR HGB CONC 33.5 g/dL (33.0-37.0); MEAN PLATELET VOLUME 8.5 fl (7.2-11.7); MONO # 0.6 K/uL (0.0-0.8); NEUT % 42.3 % (50.0-75.0); NRBC % 0.1 % (0.0-0.0); RBC 4.5 Mil/uL (3.80-5.20); RED CELL DISTRIBUTION WIDTH 14.4 % (11.5-14.5); WHITE BLOOD COUNT 7.1 K/uL (4.8-10.8)
[2018-12-03] MEDS ORDERED: DiphenhydrAMINE 50 mg/ml Inj ONE (16:54)
[2018-12-03 16:55] LABS: BLOOD UREA NITROGEN 29 mg/dl (7-17); CALCIUM 9.3 mg/dL (8.4-10.2); GFR NON-AFRICAN AMERICAN > 60
[2018-12-03 16:59] LABS: ALB/GLOB RATIO 1.1 (1.0-2.1); ALBUMIN 4.3 g/dL (3.5-5.0); ALT/SGPT 22 U/L (9-52); AST/SGOT 29 U/L (14-36)
--- NOTE | 2018-12-03 17:23 | CT ---
Date of service: 12/03/2018 PROCEDURE: CT HEAD WITHOUT CONTRAST. HISTORY: [facility] COMPARISON: 2010 TECHNIQUE: Axial computed tomography images were obtained through the head/brain without intravenous contrast. Radiation dose: Total exam DLP = 785.69 mGy-cm. This CT exam was performed using one or more of the following dose reduction techniques: Automated exposure control, adjustment of the mA and/or kV according to patient size, and/or use of iterative reconstruction technique. FINDINGS: HEMORRHAGE: No intracranial hemorrhage. BRAIN: No mass effect or edema. Stable mild age related atrophy and scattered small vessel changes in the white matter tracts are noted. A very tiny caudate head lacunar infarct is not excluded. Posterior fossa is unremarkable. No cortical effacement is seen. Mild atherosclerotic changes of the distal vertebral arteries and intracranial internal carotid arteries is seen. VENTRICLES: Unremarkable. No hydrocephalus. CALVARIUM: Unremarkable. PARANASAL SINUSES: There is evidence of a small fluid level in the posterior aspect of the right maxillary sinus suggestive of mild maxillary sinusitis. Mild mucosal thickening is seen in the ethmoid air cells. MASTOID AIR CELLS: Unremarkable as visualized. No inflammatory changes. OTHER FINDINGS: Retro-orbital regions are unremarkable. IMPRESSION: No evidence of recent infarct or intracranial hemorrhage. Stable mild age related atrophy and small vessel changes. Mild right maxillary sinusitis, new from prior study.
[2018-12-03] MEDS ORDERED: Amoxicillin-Clav 875-125 mg Tab PO STA (17:42)
[2018-12-03] MEDS ORDERED: Amoxicillin-Clav 875-125 mg Tab PO ONE (18:22)
[2018-12-03 19:32] VITALS: BP 125/68; PULSE 71; RESP 20; TEMP 98.3
== END 2018-12-03 19:30 | disposition home or self-care (01) ==
LOC: H.ER 15:33
DX: J32.0 Chronic maxillary sinusitis (principal); R51 Headache; E11.9 Type 2 diabetes mellitus without complications; I10 Essential (primary) hypertension; F17.200 Nicotine dependence, unspecified, uncomplicated; Z79.84 Long term (current) use of oral hypoglycemic drugs
CPT/HCPCS: 70450; 80053; 82948; 85025; 96365; 96374; 99285; J1200; J2550; J7030